=== PATIENT | female | born 1950 | race Caucasian/White ===

== ENCOUNTER 2019-10-07 12:46 | Emergency (ER) | payer MEDICARE ==
[2019-10-07] MEDS ORDERED: SULFASALAZIN500 M1 PO (14:11)
[2019-10-07] MEDS ORDERED: HYDROXYCHLOR200 MG PO (14:11)
[2019-10-07] MEDS ORDERED: LOPRESSOR25 MG PO (14:12)
[2019-10-07] MEDS ORDERED: MULTI VIT PO (14:12)
[2019-10-07] MEDS ORDERED: PREDNISONE5 MG PO (14:12)
[2019-10-07] MEDS ORDERED: VENTOLIN HFA IN (14:13)
[2019-10-07] MEDS ORDERED: FOLIC ACID1 MG PO (14:13)
[2019-10-07] MEDS ORDERED: VITAMIN D5000 UNI1 PO (14:13)
[2019-10-07 14:45] VITALS: BP 170/79
[2019-10-07 14:52] LABS: HEMOGLOBIN 13.2 g/dl (12.0-16.0); IMMATURE GRANULOCYTES 0.4 % (0.0-5.0); MEAN CELL VOLUME 94.2 fL CALC (80.0-100.0); MEAN CORPUSCULAR HGB 31.9 pG CALC (26.0-32.0); MEAN CORPUSCULAR HGB CONC 33.8 g/L CALC (32.0-36.0); NEUT# 13.28 thou/uL (2.00-7.15); RED BLOOD COUNT 4.14 mill/uL (4.20-5.60); RED CELL DISTRI WIDTH 12.2 % (11.5-15.5)
[2019-10-07 15:14] LABS: ALBUMIN 3.9 g/dL (3.2-5.0); ALKALINE PHOSPHATASE 80 u/l (38-126); ANION GAP 12 (6-22 (CALC)); BILIRUBIN, TOTAL 0.5 mg/dL (0.0-1.4); BUN 7 mg/dL (8-23); BUN/CREATININE RATIO 13 (12-20 (CALC)); CARBON DIOXIDE 27 mmol/l (22-30); CHLORIDE 96 mmol/l (95-108); CREATININE 0.5 mg/dL (0.5-1.0); ETHYL ALCOHOL 0 mg/dl (0-30); GFR > 60 ML/MIN (>=60 (CALC)); GFR FOR AFR.AMER. > 60 ML/MIN (>=60 (CALC)); POTASSIUM 3.9 mmol/l (3.5-5.1); SGOT/AST 31 u/l (9-36); SODIUM 132 mmol/l (137-146); TOTAL PROTEIN 7.1 g/dL (6.3-8.2)
== END 2019-10-07 15:09 ==
LOC: ED 12:46
DX: S82.142A Displaced bicondylar fracture of left tibia, initial encounter for closed fracture (principal); S82.832A Other fracture of upper and lower end of left fibula, initial encounter for closed fracture; W11.XXXA Fall on and from ladder, initial encounter; Y92.019 Unspecified place in single-family (private) house as the place of occurrence of the external cause

== ENCOUNTER 2021-10-29 15:25 | Inpatient (IN) | payer MEDICARE ==
[~2021-10-29] VITALS: Ht 91.4 cm; Wt 60.0 kg
[~2021-10-29 15:25] MED LIST: FOLIC ACID1 MG PO; HYDROXYCHLOR200 MG PO; LOPRESSOR25 MG PO; MULTI VIT PO; PREDNISONE5 MG PO; SULFASALAZIN500 M1 PO; VENTOLIN HFA IN; VITAMIN D5000 UNI1 PO
--- NOTE | 2021-10-29 15:30 | NUR ---
PT AMBULATORY TO ROOM # 6 FOR BEDSIDE TRIAGE ACCOMPANIED BY .
[2021-10-29 16:07] LABS: HEMATOCRIT 52.4 % (37.0-47.0); HEMOGLOBIN 17.6 g/dl (12.0-16.0); IMMATURE GRANULOCYTES 0.2 % (0.0-5.0); MEAN CELL VOLUME 94.4 fL CALC (80.0-100.0); MEAN CORPUSCULAR HGB 31.7 pG CALC (26.0-32.0); MEAN CORPUSCULAR HGB CONC 33.6 g/dL CAL (32.0-36.0); NEUT# 10.91 thou/uL (2.00-7.15); RED BLOOD COUNT 5.55 mill/uL (4.20-5.60); RED CELL DISTRI WIDTH 12.5 % (11.5-15.5)
[2021-10-29 16:23] LABS: ALBUMIN 4.4 g/dL (3.2-5.0); ALKALINE PHOSPHATASE 61 u/l (38-126); ANION GAP 9 (6-22 (CALC)); BUN 7 mg/dL (8-23); BUN/CREATININE RATIO 11 (12-20 (CALC)); CARBON DIOXIDE 31 mmol/l (22-30); CHLORIDE 90 mmol/l (95-108); CREATININE 0.7 mg/dL (0.5-1.0); GFR > 60 ML/MIN (>=60 (CALC)); GFR FOR AFR.AMER. > 60 ML/MIN (>=60 (CALC)); LIPASE 36 u/l (23-300); POTASSIUM 4.6 mmol/l (3.5-5.1); SGOT/AST 26 u/l (9-36); SODIUM 126 mmol/l (137-146); TOTAL PROTEIN 7.8 g/dL (6.3-8.2)
--- NOTE | 2021-10-29 16:30 | NUR ---
Reassessment of patient completed. No distress noted.
[2021-10-29 16:32] LABS: BILIRUBIN, TOTAL 0.9 mg/dL (0.0-1.4)
[2021-10-29 16:35] LABS: URINE BILIRUBIN - DIPSTICK NEGATIVE (NEGATIVE); URINE BLOOD DIPSTICK NEGATIVE (NEGATIVE); URINE COLOR YELLOW; URINE GLUCOSE - DIPSTICK NEGATIVE (NEGATIVE); URINE KETONE NEGATIVE (NEGATIVE); URINE LEUK ESTERASE NEGATIVE (NEGATIVE); URINE PROTEIN - DIPSTICK TRACE mg/dL (NEG-TRACE); URINE UROBILINOGEN - DIPSTICK 0.2 E.U./dL (0.2)
[2021-10-29 16:36] LABS: URINE NITRITE - DIPSTICK NEGATIVE (Negative)
--- NOTE | 2021-10-29 17:14 | NUR ---
Reassessment of patient completed. No distress noted.-
--- NOTE | 2021-10-29 18:15 | NUR ---
PATIENT AWARE OF PENDING RESULTS AND WAIT TIME. CALL TOBIN WITHIN REACH.
--- NOTE | 2021-10-29 18:49 | NUR ---
PT MEDICATED FOR ABD PAIN 08/06. PT STATES SHE IS FEELING SOME BETTER. TOLERATING NG TUBE WELL. , SMALL AMOUNT LIGHT GREEN CLEAR DRAINAGE TO SUCTION.
--- NOTE | 2021-10-29 19:05 | NUR ---
RECEIVED REPORT FROM SCOT LAM.
[2021-10-29] MEDS ORDERED: PREDNISONE5 MG PO (19:12)
--- NOTE | 2021-10-29 21:16 | NUR ---
REPORT CALLED TO MED/SURG
--- NOTE | 2021-10-29 21:45 | NUR ---
TRANSFER TO ROOM 261.
[2021-10-29 22:54] VITALS: BP 191/95
--- NOTE | 2021-10-29 23:00 | NUR ---
RECEIVED REPORT FROM ED NURSE MILADIS, TRANSPORTED VIA WHEELCHAIR, PATIENT AMBULATED TO BED, STEADY GAIT, NGT INSERTED ON RT NARE AT 55CM TIP OF THE NOSE, CONNECTED TO LIS, PATIENT MAINTANED ON NPO.
[2021-10-30] VITALS: BP 151/91
--- NOTE | 2021-10-30 | NUR ---
PATIEN RESTING IN BED EYES CLOSED, NOT IN DISTRESS CALL LIGHT AT REACH.
--- NOTE | 2021-10-30 03:42 | NUR ---
PATIENT HAD A LOOSE BOWEL MOVEMENT, UNABLE TO MAKE IT TO THE COMODE, BED SHEET CHANGE, INCONTINENT CARE PROVIDED, PATIENT ASSISTED BACK IN BED, BED ALARM IN PLACE, MONITOR IN PLACE.
[2021-10-30 04:05] VITALS: BP 165/96
--- NOTE | 2021-10-30 04:55 | NUR ---
PATIENT C/O ABDOMINAL PAIN PS 6/10, GRIMACING AND MOANING, GUARDING ABDOMEN, PRN MORPHINE GIVEN AT THIS TIME.
[2021-10-30 05:23] VITALS: BP 142/89
[2021-10-30 05:24] LABS: HEMOGLOBIN 16.5 g/dl (12.0-16.0); IMMATURE GRANULOCYTES 0.2 % (0.0-5.0); MEAN CELL VOLUME 96.1 fL CALC (80.0-100.0); MEAN CORPUSCULAR HGB 32.4 pG CALC (26.0-32.0); MEAN CORPUSCULAR HGB CONC 33.7 g/dL CAL (32.0-36.0); NEUT# 8.63 thou/uL (2.00-7.15); RED BLOOD COUNT 5.1 mill/uL (4.20-5.60); RED CELL DISTRI WIDTH 12.5 % (11.5-15.5)
[2021-10-30 05:42] LABS: ALKALINE PHOSPHATASE 45 u/l (38-126); ANION GAP 9 (6-22 (CALC)); BILIRUBIN, TOTAL 0.9 mg/dL (0.0-1.4); BUN 8 mg/dL (8-23); BUN/CREATININE RATIO 10 (12-20 (CALC)); CARBON DIOXIDE 31 mmol/l (22-30); CHLORIDE 93 mmol/l (95-108); CREATININE 0.7 mg/dL (0.5-1.0); GFR > 60 ML/MIN (>=60 (CALC)); GFR FOR AFR.AMER. > 60 ML/MIN (>=60 (CALC)); POTASSIUM 4.7 mmol/l (3.5-5.1); SGOT/AST 22 u/l (9-36); SODIUM 129 mmol/l (137-146); TOTAL PROTEIN 6.4 g/dL (6.3-8.2)
[2021-10-30 05:50] LABS: ALBUMIN 3.5 g/dL (3.2-5.0)
--- NOTE | 2021-10-30 05:54 | NUR ---
1ST 15 ML OF GASTROGRAFTIN GIVEN 0545 VIA NGT, NGT PATENT AND CHECKED FOR PLACEMENT.
--- NOTE | 2021-10-30 06:06 | NUR ---
2ND DOSE OF GASTROGRAFTIN GIVEN AT THIS TIME, PATIENT TOLERATED.
--- NOTE | 2021-10-30 06:20 | NUR ---
3RD DOSE OF 15ML OF GRASTROGRAFTIN GIVEN, PATIENT TOLERATED, NGT CLAMPED AT THIS TIME, PATIENT ON UPRIGHT POSITION.
--- NOTE | 2021-10-30 09:01 | NUR ---
WENT DOWN TO CT WITH [facility] LIZM VIA WC IN STABLE CONDITION. NG TUBE FELL OUT OF PT NOSE. GARY MCQUEEN NOTIFIED.
--- NOTE | 2021-10-30 10:00 | NUR ---
PT BACK IN ROOM FROM CT SCAN VIA WC. NO N/V AT THIS TIME. CALL LIGHT WITHIN REACH
--- NOTE | 2021-10-30 10:10 | NUR ---
PLACED NEW NG TUBE WITH RN ELISABET AND CAROLE VERMA. PT REALLY ANXIOUS ABOUT NG TUBE, BUT NG TUBE IN PLACE AND SECURED WITH SAFTEY PIN. SUCTIONING SLIGHT GREEN/YELLOW.
[2021-10-30 11:33] VITALS: BP 146/79
[2021-10-30 14:15] VITALS: BP 166/85
--- NOTE | 2021-10-30 15:08 | NUR ---
PT WENT DOWN TO OR WITH CAROLE COLE AND CAROLE DUARTE VIA STRETCHER WIT NG TUBE IN PLACE/STABLE CONDITION AT THIS TIME.
[2021-10-30] MEDS ORDERED: SULFASALAZIN500 M1 PO ×2 (15:20→15:37)
[2021-10-30] MEDS ORDERED: CALCI17 PO (15:21)
--- NOTE | 2021-10-30 16:31 | NUR ---
PT STILL IN OR AT THIS TIME
--- NOTE | 2021-10-30 18:42 | NUR ---
PT ARRIVED VIA STRECTHER WITH CAROLE BERNARD PT IN PAIN BUT RECIEVED PAIN MEDICATION FROM OR. ORIENTATED PT TO ROOM. CALL LIGHT WITHIN REACH.
[2021-10-30 19:00] VITALS: BP 124/69
--- NOTE | 2021-10-30 23:53 | NUR ---
PHYSICAL ASSESMENT COMPLETE. PT CURRENTLY C/O OF NAUSEA AT THIS TIME. SCHEDULED MEDICATIONS AND PRN MEDICATION ADMINISTERED, SEE E-MAR. NG TUBE IN RIGHT NARES PLACE ON INTERMITENT SUCTIONING. OSBORN CATHETER SECURE IN PLACE WITH URINE FLOWING TO GRAVITY. PT DENIES ANY NEEDS AT THIS TIME. PLAN OF CARE REVIEWED, PT DENIES QUESTIONS, VERBALIZES UNDERSTANDING. ITEMS WITHIN REACH, BED LOCKED IN LOW POSITION W/ BEDRAILS UP X2. CALL TOBIN WITHIN REACH, AGREES TO CALL PRN.
[2021-10-31] VITALS (23 sets, daily range): BP systolic 81–122; BP diastolic 58–82
[2021-10-31 04:31] LABS: CREATININE 1.5 mg/dL (0.5-1.0); POTASSIUM 4.5 mmol/l (3.5-5.1); TOTAL PROTEIN 5.6 g/dL (6.3-8.2)
[2021-10-31 04:34] LABS: HEMATOCRIT 45.8 % (37.0-47.0); HEMOGLOBIN 14.8 g/dl (12.0-16.0); IMMATURE GRANULOCYTES 0.2 % (0.0-5.0); MEAN CELL VOLUME 99.6 fL CALC (80.0-100.0); MEAN CORPUSCULAR HGB 32.2 pG CALC (26.0-32.0); MEAN CORPUSCULAR HGB CONC 32.3 g/dL CAL (32.0-36.0); NEUT# 23.7 thou/uL (2.00-7.15); RED BLOOD COUNT 4.6 mill/uL (4.20-5.60)
--- NOTE | 2021-10-31 04:50 | NUR ---
0245-RECIEVED CALL FROM IN ER-STATING THAT THE PATIENT WAS SHOWING ST-140'S ON TELE. WENT TO PATIENT ROOM TO FIND HE COLD AND CLAMMY-O2 VIA NASAL CANNULA IN PLACE AT 2LPM. IVF PATENT AND INFUSING VIA LEFT ARM IV SITE AT 125CC/HR. NGT PATENT AND DRAINING BROWN FLUID-TOTAL OUTPUT THIS SHIFT SO FAR IS 100CC. OSBORN PATENT WITH LITTLE URINE OUTPUT THIS SHIFT-LESS THAN 100CC. PATIENT IS LETHARGIC BUT AROUSABLE. PATIENT WITH TEMP OF <96 AT THIS TIME. BP-107/65, HR 136 AND O2 SAT IS 95%. CALL PLACED TO DR. JULIAN AND MEDICAL LAB ASSISTANT CALLED. 0307-MEDICAL LAB ASSISTANT AND NSG CLOTH SPONGER HERE IN PATIENT ROOM-IV NS BOLUS INFUSING VIA LEFT ARM IV SITE. ADDITIONAL IV SITE STARTED TO RAC WITH GOOD BLOOD RETURN-LABS WERE DRAWN. EKG WAS DONE AT BEDSIDE. ABG'S WERE DRAWN. BEARHUGGER ON PATIENT AT THIS TIME 0345-MEDICAL LAB ASSISTANT SPEAKING WITH DR. JULIAN AGAIN. ACCU-CHECK WAS DONE AND WAS 121. CONT TO MONITOR PATIENT AT BEDSIDE WITH VS. 0415-TEMP IS UP OVER 96 AT THIS TIME AND PATIENT IS C/O FEELING HOT. BEARHUGGER REMOVED. 2ND IVF BOLUS STARTED VIA RAC SITE. URINE OUTPUT REMAINS POOR. CONT TO MONITOR AT BEDSIDE WITH VS. 0445-STILL WITH HR OVER 130. TROP RESULTS ARE 0.070, BNP-3160 AND LACT[address] ACID 2.4 DR[address] JULIAN NOTIFIED OF RESULTS AND ORDERS RECEIVED TO TRANSFER TO ICU-NSG CLOTH SPONGER HERE AND AWARE. PATIENT IS BECOMING MORE ALERT. 0500-PATIENT TRANSFERRED VIA BED TO ER BED 9-FOR ICU OVERFLOW WITH MYSELF AND NSG CLOTH SPONGER IN ATTENDANCE. BEDSIDE REPORT GIVEN TO PATITO LAM IN THE ER. ELEVATED HR. BP IS STABLE WITH SYS BP OVER 100. O2 SATS REMAIN STABLE AT
--- NOTE | 2021-10-31 05:00 | NUR ---
RECEIVED VIA BED FROM ROOM 261. AWAKE ALERT CONVERSANT.
--- NOTE | 2021-10-31 05:45 | NUR ---
STATES FEELING BETTER THAN EARLIER THIS AM. TAKING ICE CHIPS. ELÍAS HILARIO TO MED CONSTANT SUCTION. IRENA TO BSD. ELÍAS HILARIO RIGHT HANGE PATENT AND DRAINING.
[2021-10-31 06:33] LABS: URINE BLOOD DIPSTICK SMALL (NEGATIVE); URINE COLOR YELLOW; URINE GLUCOSE - DIPSTICK NEGATIVE (NEGATIVE); URINE KETONE TRACE mg/dL (NEGATIVE); URINE LEUK ESTERASE NEGATIVE (NEGATIVE); URINE PROTEIN - DIPSTICK 30 mg/dL (NEG-TRACE); URINE SPECIFIC GRAVITY >=1.030; URINE UROBILINOGEN - DIPSTICK 0.2 E.U./dL (0.2)
[2021-10-31 06:41] LABS: URINE BILIRUBIN - DIPSTICK SMALL (NEGATIVE); URINE NITRITE - DIPSTICK NEGATIVE (Negative); URINE WBC 0-2 WBC/hpf (0-5)
[2021-10-31 06:42] LABS: URINE AMORPH SEDIMENT MANY hpf (NONE-FEW); URINE BACTERIA MANY hpf; URINE MUCUS FEW hpf (NONE-FEW); URINE SQUAMOUS EPITHELIAL CELL FEW EPI/hpf (0-FEW)
--- NOTE | 2021-10-31 09:36 | NUR ---
REPORT PROVIDED AT BEDSIDE TO TRISTIN
--- NOTE | 2021-10-31 10:38 | NUR ---
5MG/5ML OF IV METROPOLOL GIVEN AT THIS TIME FOR HEART RATE OF 145. MEDICATION GIVEN OVER 3 MINUTES BY THIS NURSE. WILL CONTINUE TO MONITOR AT THIS TIME.
--- NOTE | 2021-10-31 11:50 | NUR ---
PATIENT GIVEN 5MG LOPRESSOR OVER 3 MINS AT TIME HR WAS 139 AND B/P 96/[address] STRONG ORDER
--- NOTE | 2021-10-31 16:41 | NUR ---
CALL INFORMED THAT PATIENT HR IS HIGH 140'S TO 150, NO NEW ORDERED RECEIVING AT THIS TIME.
--- NOTE | 2021-10-31 17:13 | NUR ---
LOPRESSOR 5MG GIVEN OVER [address] STRONG ORDER , HR 148 AT TIME B/P 106/74, PATIENT WITH VERY LITTLE URINE OUTPUT OF ABOUT [address] AWARE NO ORDERS FOR URINE OUTPUT AT THIS TIME.
[2021-10-31 17:32] LABS: TSH, 3RD GENERATION 1.76 uIU/mL (0.47 - 4.68)
--- NOTE | 2021-10-31 18:45 | NUR ---
CHRISTOPH RECEIVED FROM ISRAEL LAM.
--- NOTE | 2021-10-31 20:25 | NUR ---
ASSESSMENT COMPLETE. PATIENT ALERT AND ORIENTED X3. BP 99/77, HR 146. PATIENT TACHYPNEIC WITH LABORED BREATHING. BOWEL SOUNDS ABSENT, ABDOMIN TENDER TO TOUCH. MIDLINE ABDOMINAL DRESSING CLEAN, DRY AND INTACT; ABDOMINAL BINDER ON. NGT TO RIGHT NARE, LOW INTERMITTEN SUCTION; BROWN CONTENT NOTED. OSBORN TO GRAVITY, SCANT AMOUNT OF YELLOW URINE NOTED. RADIAL PULSES WEAK, PEDAL PULSES OBTAINED VIA DOPPLER AND MARKED. BILATERAL LOWER EXTREMITIES DISCOLORED; BROWN. FEET APPEAR MOTTLED. PATIENT DENIES PAIN AT THIS TIME. CALL LIGHT WITHIN REACH, BED IN LOW POSITION. WILL CONTINUE TO MONITOR.
--- NOTE | 2021-10-31 21:05 | NUR ---
NOTIFIED DR. STRONG OF HEART RATE 153-154, BP 89/66, UNABLE TO GIVE IV LOPRESSER AT THIS TIME DUE TO LOW BP. NO ORDERS GIVEN AT THIS TIME. PHYSICIAN STATES THAT HEART RATE IN 140'S IS OKAY DURING THE NIGHT.
--- NOTE | 2021-10-31 22:49 | NUR ---
DR. STRONG NOTIFIED OF SATURATION CONSISTENTLY IN THE 80'S. PATIENT IS NOW SHOWING SIGNS OF CONFUSION; UNABLE TO RECALL DATE OF OR LOCATION AND THINK SHE IS GOING HOME. DR. STRONG STATES HE WILL ORDER ABG AND LABS.
--- NOTE | 2021-10-31 23:18 | NUR ---
CALLED DR. STRONG WITH ABG RESULTS: PH 7.219, CO2 45.0, PO2 59, H2CO3 14.3 SAO2 85.8. NO NEW ORDERS GIVEN, PHYSICIAN AWAITING LAB RESULTS.
[2021-10-31 23:22] LABS: HEMATOCRIT 40.1 % (37.0-47.0); IMMATURE GRANULOCYTES 0.5 % (0.0-5.0); MEAN CELL VOLUME 105.2 fL CALC (80.0-100.0); MEAN CORPUSCULAR HGB 32.3 pG CALC (26.0-32.0); MEAN CORPUSCULAR HGB CONC 30.7 g/dL CAL (32.0-36.0); NEUT# 15.62 thou/uL (2.00-7.15); RED BLOOD COUNT 3.81 mill/uL (4.20-5.60); RED CELL DISTRI WIDTH 13.2 % (11.5-15.5)
[2021-10-31 23:23] LABS: HEMOGLOBIN 12.3 g/dl (12.0-16.0)
--- NOTE | 2021-10-31 23:40 | NUR ---
BLOOD PRESSURE 42/30, PATIENT UNRESPONSIVE, UNABLE TO OBTAIN OXYGEN SATURATION. RAPID RESPONSE ACTIVATED.
[2021-10-31 23:49] LABS: ALBUMIN 2.8 g/dL (3.2-5.0); BILIRUBIN, TOTAL 1.3 mg/dL (0.0-1.4); POTASSIUM 4.9 mmol/l (3.5-5.1); TOTAL PROTEIN 5.5 g/dL (6.3-8.2)
[2021-10-31 23:50] LABS: CREATININE 3.1 mg/dL (0.5-1.0)
[2021-11-01] VITALS (64 sets, daily range): BP systolic 38–190; BP diastolic 22–93
--- NOTE | 2021-11-01 00:11 | NUR ---
RECEIVED CALL FROM DR. STRONG REGARDING PREVIOUSLY DRAWN LAB VALUES. INFORMED THE PHYSICIAN OF THE RAPID RESPONSE, INTUBATION AND TRANSFER TO ED HOLD.
--- NOTE | 2021-11-01 00:16 | NUR ---
10/31/21 @ 2344 RAPID RESPONSE TEAM ACTIVATED. 2345 BP 40/19, HR 136. 2350 DR. GONZALEZ AT BEDSIDE TO EVALUATE AND DECISION MADE TO INTUBATE. MEDS GIVEN PRIOR TO INTUBATION, BOLUS OF NORMAL SALINE UP. 2359 ET PLACED X1 ATTEMPT. TUBE 7.5 AND 26CM @ THE LIP. PATIENT TRANSPORTED TO ED FOR HOLDING.
--- NOTE | 2021-11-01 00:39 | NUR ---
SHE GOT INTUBATED WITH A 7.5 ETT AT 26 CM OF THE LIPS. ETT PLACEMENT VERIFIED BY LISTENING OF BREATH SOUND, CO2 DETECTOR AND THEN X-RAY. AFTER THE X-RAY, MD ORDERED TO PULL UP THE TUBE TO 23 CM. PLACED ON THE VENTILATOR WITH THE FOLLOWING SETTING AC, RATE 16, VT 450, FIO2 100% WITH PEEP OF 5.
--- NOTE | 2021-11-01 00:50 | NUR ---
CALLED DR STRONG AND UPDATED HIM THAT PT HAD BLOOD DRAINING FROM NG TUBE 300 CC AND STILL DRAINING PT IS INTUBATED AND ON THE VENT. WILL CALL AND ADVISE DR MCCURDY.
--- NOTE | 2021-11-01 00:55 | NUR ---
CALLED DR. MCCURDY AND UPDATED HIM ON SITUATION.
--- NOTE | 2021-11-01 01:50 | NUR ---
DR GONZALEZ PLACED [facility] TRIPLE LUMEN CATHETER. PLACEMENT CONFIRMED BY X-RAY.
[2021-11-01 02:09] LABS: INTERNATIONAL NORMALIZED RATIO 2.4 RATIO (0.7-1.3); PROTHROMBIN TIME 23.7 SECONDS (9.0-12.5)
--- NOTE | 2021-11-01 02:50 | NUR ---
PT/PTT/INR CALLED TO DR. STRONG. FIBRINOGEN ORDERED AND DRAWN.
--- NOTE | 2021-11-01 03:11 | NUR ---
DECREASED PHENYLEPHRINE DRIP TO 2.9
--- NOTE | 2021-11-01 05:28 | NUR ---
AWAKE RESPONDS APPROPRIATELY.
[2021-11-01 05:32] LABS: CREATININE 3.6 mg/dL (0.5-1.0); MAGNESIUM 1.8 mg/dL (1.6-2.3)
--- NOTE | 2021-11-01 07:00 | NUR ---
REPORT GIVEN TO CAROLE COLE
--- NOTE | 2021-11-01 07:36 | NUR ---
RECEIVED REPORT FROM OFF GOING NURSE. PT ALERT AND RESPONSIVE. ET TUBE 7.5 22 @ THE BOTTOM LIP. NG TUBE TO RT NARE. VENT SETTINGS AC/VC, TV 450, FIO2 80%, PEEP 5, RATE 16. TLC TO RT SUBCLAVIAN. 20GA TO RT FA. 20GA TO LAC. PHENYLEPHRINE 1.5MCG/KG/MIN. ZOSYN 3.375GM INFUSING AT THIS TIME. SCDs ON BILAT LOWER EXT.
--- NOTE | 2021-11-01 07:49 | NUR ---
DR STRONG CALLED IN FOR UPDATE ON PT CONDITION. HR CONTINUES IN THE 130s.
--- NOTE | 2021-11-01 08:05 | NUR ---
DR STRONG CALLED STATES HE SPOKE WITH SURGEON AND PT NOT CANDIDATE FOR SURGURY AT THIS POINT IN TIME. ALSO STATES AGREEABLE IN REGARDS TO TRANSFERRING PT TO HIGHER LEVEL OF CARE.
--- NOTE | 2021-11-01 08:34 | NUR ---
SPOKE WITH DR STRONG IN REGARDS TO SWITCHING PT TO VASOPRESSIN FROM NIC TO REDUCE IV FLUID INTAKE RELATED TO DECREASED URINE OUTPT. AWAITING RESPONSE.
--- NOTE | 2021-11-01 09:12 | NUR ---
PT AND PTS BROTHER AT BEDSIDE.
[2021-11-01 09:17] LABS: HEMATOCRIT 37.1 % (37.0-47.0); HEMOGLOBIN 11.7 g/dl (12.0-16.0); MEAN CELL VOLUME 100.8 fL CALC (80.0-100.0); MEAN CORPUSCULAR HGB 31.8 pG CALC (26.0-32.0); MEAN CORPUSCULAR HGB CONC 31.5 g/dL CAL (32.0-36.0); RED BLOOD COUNT 3.68 mill/uL (4.20-5.60); RED CELL DISTRI WIDTH 14.1 % (11.5-15.5)
--- NOTE | 2021-11-01 09:31 | NUR ---
DR STRONG IN TO SEE PT.
[2021-11-01 10:29] LABS: INTERNATIONAL NORMALIZED RATIO 2.3 RATIO (0.7-1.3); PROTHROMBIN TIME 22.8 SECONDS (9.0-12.5)
--- NOTE | 2021-11-01 10:38 | NUR ---
SWITCHED FROM NIC GTT TO VASOPRESSIN GTT.
[2021-11-01 11:03] LABS: BILIRUBIN, TOTAL 1.6 mg/dL (0.0-1.4); POTASSIUM 4.8 mmol/l (3.5-5.1); TOTAL PROTEIN 4.4 g/dL (6.3-8.2)
[2021-11-01 11:10] LABS: ALBUMIN 2.1 g/dL (3.2-5.0)
--- NOTE | 2021-11-01 11:15 | NUR ---
B/P DOWN AT 1140 HR IN THE 80s. CODED STARTED.
--- NOTE | 2021-11-01 11:22 | NUR ---
RETURNED FROM CT. VASOPRESSION DECREASED FROM 0.01 TO 0.005UNITS/MIN.
--- NOTE | 2021-11-01 12:05 | NUR ---
ROSC ACHEIVED. VASOPRESSIN AT 0.04UNIT/MIN. NIC AT 1.5MCG/KG/MIN.
--- NOTE | 2021-11-01 12:27 | NUR ---
LEVOPHED GTT STARTED. CXR BEING DONE AT THIS TIME.
--- NOTE | 2021-11-01 13:08 | NUR ---
DR STRONG IN WITH PT.
--- NOTE | 2021-11-01 13:48 | NUR ---
VASOPRESSIN AT 0.04UNITS/MIN, LEVOPHED AT 30MCG/MIN, AND NIC AT 10MCG/KG/MIN.
--- NOTE | 2021-11-01 14:03 | NUR ---
DR MCCURDY IN ROUNDING ON PT AND SPEAKING WITH PT AND BROTHER.
--- NOTE | 2021-11-01 14:33 | NUR ---
DR STRONG IN WITH PT.
--- NOTE | 2021-11-01 14:47 | NUR ---
FAMILY REQUESTED IS PERFORMING LAST RITES AT THIS TIME.
--- NOTE | 2021-11-01 14:57 | NUR ---
DR STRONG IN SPEAKING WITH AND BROTHER IN REGARDS TO CODE STATUS.
--- NOTE | 2021-11-01 15:17 | NUR ---
S: JEAN-PIERRE HENDRIX is a 71 F who presents with abdominal pain. She has a history of CAD, HTN, osteoporosis, CODP . All medications in patient's chart were reviewed. O: VS: BP= 11/74 mmHg, P= 134 BPM, RR= 21 BPM,T= 97.7 F W= 59.987 kg, HT=65 in, Scr= 4 ml/dL,CrCl= 12.6 ml/min A: Blood culture shows no growth. Urine culture is pending. P: Patient is on no ABX. Vancomycin ordered for pharmacy to dose. Start Vancomycin 1 g IV Q24H x 1. Vancomycin trough is to be drawn on 11/02/2021 at 1300. Vancomycin goal trough is between 15-20 mcg/ml. Pharmacy will follow and or advise on antibiotics use as needed.
--- NOTE | 2021-11-01 15:28 | NUR ---
ARIEL HENDRIX SIGNED DNR. DR STRONG MADE AWARE.
--- NOTE | 2021-11-01 15:34 | NUR ---
FAMILY REQUEST COMFORT MEASURES.
--- NOTE | 2021-11-01 15:39 | NUR ---
INTERMINAL EXTUBATION DONE BY RT.
--- NOTE | 2021-11-01 15:49 | NUR ---
1 ST DOSE OF COMFORT MEDS GIVEN. FAMILY AT BEDSIDE.
--- NOTE | 2021-11-01 15:52 | NUR ---
UNABLE TO AUSCULTATE APICAL PULSE. UNABLE TO PALPATE LUNG SOUNDS. VERIFIED WITH [address] STRONG MADE AWARE.
--- NOTE | 2021-11-01 16:11 | NUR ---
[employer] MADE AWARE OF PT EXPIRING. DID NOT MEET CRITERIA FOR TISSUE DONATION. SPOKE WITH [facility] REFERENCE NUMBER [phone].
--- NOTE | 2021-11-01 16:19 | NUR ---
SPOKE WITH TORI AT [facility] AT [facility] [phone]. HOME TO PUT UP AT [facility].
--- NOTE | 2021-11-01 16:43 | NUR ---
HOME IN TO FLOOR WAXER . ALINA FROM [facility] CALLED AND PT DOES NOT MEET CRITERIA AND MAY BE RELEASED.
--- NOTE | 2021-11-01 17:00 | NUR ---
HOME MATERIAL HANDLER 1ST SHIFT ARRIVED AND REMOVED FROM FACILITY.
== END 2021-11-01 15:52 | disposition expired | DRG 335 ==
LOC: ED 15:25 → ED-I 18:00 → ED 18:16 → MS2 18:17 → ED-I 10-30 19:57 → MS2 10-30 19:58 → ED-I 10-31 04:16 → ICU 10-31 09:09
PROVIDERS: Family Medicine; Hospitalist; Nurse Practitioner; ADMIT Internal Medicine; ATTEND Internal Medicine
PROC: 0DN80ZZ Release Small Intestine, Open Approach (ICD-10-PCS; principal; 2021-10-30)
PROC: 0BH17EZ Insertion of Endotracheal Airway into Trachea, Via Natural or Artificial Opening (ICD-10-PCS; 2021-10-31)
PROC: 5A1935Z Respiratory Ventilation, Less than 24 Consecutive Hours (ICD-10-PCS; 2021-10-31)
PROC: 05H533Z Insertion of Infusion Device into Right Subclavian Vein, Percutaneous Approach (ICD-10-PCS; 2021-10-31)
PROC: 5A12012 Performance of Cardiac Output, Single, Manual (ICD-10-PCS; 2021-11-01)
PROC: 30233N1 Transfusion of Nonautologous Red Blood Cells into Peripheral Vein, Percutaneous Approach (ICD-10-PCS; 2021-11-01)
DX: K56.50 Intestinal adhesions [bands], unspecified as to partial versus complete obstruction (principal); A41.9 Sepsis, unspecified organism; G93.41 Metabolic encephalopathy; N17.0 Acute kidney failure with tubular necrosis; K72.00 Acute and subacute hepatic failure without coma; R65.20 Severe sepsis without septic shock; E87.2 Acidosis; E87.1 Hypo-osmolality and hyponatremia; I95.9 Hypotension, unspecified; I49.1 Atrial premature depolarization; I46.9 Cardiac arrest, cause unspecified; R09.02 Hypoxemia; I10 Essential (primary) hypertension; J43.9 Emphysema, unspecified; I25.10 Atherosclerotic heart disease of native coronary artery without angina pectoris; F17.210 Nicotine dependence, cigarettes, uncomplicated; Z51.5 Encounter for palliative care; Z66 Do not resuscitate; Z20.822 Contact with and (suspected) exposure to COVID-19
CPT/HCPCS: J0131; J1650; J2060; P9016; Q9967; S0164